=== PATIENT | female | born 1935 | race Two or more races ===

== ENCOUNTER → 2020-02-28 | Outpatient (CLI) | payer MEDICAID | END | disposition home or self-care (01) | LOC: RADPV 10:12 | PROVIDERS: ATTEND Internal Medicine Cardiovascular Disease | DX: I08.8 Other rheumatic multiple valve diseases (principal); Z95.4 Presence of other heart-valve replacement | CPT/HCPCS: 93306 ==

== ENCOUNTER → 2021-03-06 | Outpatient (CLI) | payer MEDICARE, MEDICAID | END | disposition home or self-care (01) | LOC: RADPV 13:00 | PROVIDERS: ATTEND Internal Medicine Cardiovascular Disease | DX: I08.8 Other rheumatic multiple valve diseases (principal); Z95.2 Presence of prosthetic heart valve | CPT/HCPCS: 93306 ==